=== PATIENT | female | born 1985 | race Caucasian/White ===

== ENCOUNTER 2021-12-24 15:59 | Outpatient (CLI) | payer OTHER, SELFPAY ==
--- NOTE | 2021-12-24 16:00 | CRLHL7_ITS ---
For Patients: As a result of the Century Cures Act, medical imaging exams and procedure reports are released immediately into your electronic medical record. You may view this report before your referring provider. If you have questions, please contact your health care provider. Indication: Miscarriage with continued bleeding Technique: Pelvic ultrasound Comparison: No comparison Findings: The uterus measures 7.2 x 3.7 x 4.7 centimeters. Endometrium measures 8 millimeters no intrauterine gestational sac. Endometrium is mildly heterogeneous there is vascularity within the endometrium. The right ovary measures 5.6 x 2.4 x 4.1 centimeters there is a 4.3 centimeter anechoic cyst. Normal blood flow to the right ovary. Left ovary unremarkable measuring 3 x 1.3 x 2.5 centimeters. No free fluid in the pelvis. Impression: 1. Slightly heterogeneous endometrium measuring 8 millimeters with vascularity. Retained products of conception would not be completely excluded. 2. 4.3 centimeter anechoic ovarian cyst on the right. Normal blood flow to both ovaries. Dictated by Lizy Ames MD @ 12/24/2021 6:02:33 PM (Electronically Signed)
== END 2021-12-24 16:00 | disposition home or self-care (01) ==
LOC: US 16:02
PROVIDERS: PCP Family Medicine; Visit Provider Family Medicine
DX: O03.9 Complete or unspecified spontaneous abortion without complication (principal); N83.201 Unspecified ovarian cyst, right side
CPT/HCPCS: 76830; 76856; 93976

== ENCOUNTER 2021-12-26 11:46 | Outpatient (CLI) | payer OTHER, SELFPAY ==
[2021-12-26 13:37] LABS: HCG Quantitative* < 2.39 mIU/mL
== END 2021-12-26 11:47 | disposition home or self-care (01) ==
LOC: NFLDREF 11:49
PROVIDERS: PCP Family Medicine; Visit Provider Obstetrics & Gynecology
DX: O03.9 Complete or unspecified spontaneous abortion without complication (principal)
CPT/HCPCS: 84702

== ENCOUNTER 2022-11-26 08:20 | Inpatient (IN) | payer BC, SELFPAY ==
[2022-11-26] VITALS (21 sets, daily range): BP systolic 127–162; BP diastolic 59–93; PULSE 60–107; RESP 16–18; TEMP 36.8–37.4; O2SAT 95–100; BMI 22.8
[2022-11-26 09:17] LABS: Basophils Absolute Auto 0.02 K/uL (0.00-0.30); Basophils Percent Auto 0.3 % (0.0-3.0); Eosinophils Absolute Auto 0.02 K/uL (0.00-0.50); Eosinophils Percent Auto 0.3 % (0.0-7.0); Hematocrit 39.4 % (33.0-51.0); Hemoglobin* 12.6 gm/dL (12.0-16.0); Immature Granulocytes Abs Auto 0.02 K/uL (0.00-0.30); Immature Granulocytes Pct Auto 0.3 %; Lymphocytes Absolute Auto 1.24 K/uL (0.90-2.90); Lymphocytes Percent Auto 20.2 % (20-44); Mean Corpuscular HGB Conc 32 gm/dL (32-36); Mean Corpuscular Hemoglobin 29 pg (26-34); Mean Corpuscular Volume 89 fL (80-100); Monocytes Percent Auto 6.4 % (0.0-11.0); Neutrophils Percent Auto 72.5 % (42.0-72.0); Platelet Count* 120 K/uL (140-440); RDW Coefficient of Variation % 13.7 % (11.5-15.5); Red Blood Count 4.41 m/uL (4.00-5.20); White Blood Count* 6.13 K/uL (4.50-11.00)
[2022-11-26 09:18] LABS: Slide Review Reflex No
[2022-11-26] MEDS: LACTATED RINGERS 1000 ML 1,000 ML 125 ML IV (09:22)
[2022-11-26] MEDS: OXYTOCIN 30 unit/500 ML in NS 30 UNIT/500 ML BAG IVPB (09:24)
--- NOTE | 2022-11-26 10:55 | PM.OBHPLI ---
OB - H&P: HPI Labor/Induction History of Present Illness Time Seen by Provider: 10:55 Date Seen: 11/26/22 Chief Complaint: The patient is a 37 year old 4 para 2 at 39w3d gestation by LMP and consistent with 9 week ultrasound, who presents for induction of labor for AMA and history of precipitous deliveries. Chief complaint: Elective, Hx fast labors : 4 Para: 2 Narrative: Susu Vaughn is a 37 year old female here for induction for AMA and history of precipitous delivery at 39w4d. She feels well. Has no concerns today. Notably, has daughter with CF carrier and dad has thalassemia. Met with Perinatology during this and declined carrier screening for this . History of Present Dating criteria: based on LMP care: good care Ultrasounds: normal 1st trimester US and normal mid trimester US (Normal level 2 ultrasound with MPP) Medical complications: none Labs Blood type: A (+) positive Rubella: immune RPR/VDLR: nonreactive GBS status: negative HBsAG: negative Review of Systems Status of ROS: Reports: 10 or more systems reviewed and unremarkable except as noted in History and below Meds Home Medications and Allergies Home Medications Medication Instructions Recorded Confirmed Type No Known Home Medications 12/26/21 12/26/21 History Allergies Allergy/AdvReac Type Severity Reaction Status Date / Time No Known Drug Allergies Allergy Verified 12/26/21 10:48 OB - H&P: Exam Physical Exam: Vital signs: Pulse BP Pulse Ox 77 135/85 98 11/26/22 08:30 11/26/22 08:30 11/26/22 08:29 Constitutional: Constitutional: no acute distress and thin Routine HEENT Exam: Head: Present atraumatic and normal inspection ENT: Present mucous membranes moist Routine Neck Exam: Neck: Present full ROM Routine Respiratory Exam: Respiratory: Present CTA bilaterally Routine Cardiovascular Exam: Cardiovascular: RRR, S1 and S2 Routine Rectal Exam: Visual: Absent tenderness Routine Exam: Perineum Description: Normal Detailed Labor and Delivery Exam: Patient Gravid: Yes Dilation (cm): 4 Effacement (%): 60 Cervix position: posterior Consistency: soft Contraction frequency (min): 2 Contraction duration (sec): 30 Tachysystole: No Contraction intensity: Mild Fetus (Single): Station: -2 Amniotic Membrane Status: AROM (blood tinged fluid) Heart Rate Baseline: 130 Monitor Accelerations: Present Monitor Decelerations: None Calender Wind Up Tender Variability: Moderate (6-25) Routine Extremities Exam: Extremities: Absent calf tenderness Routine Back/Spine/Pelvis Exam: Back/Spine: full ROM Routine Neurological Exam: Present alert and oriented X3 Routine Psychiatric Exam: Present normal affect OB - Results Labs Labs: Short CBC 11/26/22 Range/Units 09:11 WBC 6.13 (4.50-11.00) K/uL Hgb 12.6 (12.0-16.0) gm/dL Hct 39.4 (33.0-51.0) % Plt Count 120 L (140-440) K/uL OB - Problem Based A/P Additional Plan (1) Term : Status: Acute (2) AMA (advanced maternal age) multigravida 35+: Status: Acute Plan - Pitocin is at 4 - AROM with blood tinged fluid - anticipate Delivery/Labor/Induction Plan Plan: induction Induction method: per pitocin protocol (AROM after pitocin)
[2022-11-26 13:59] LABS: Creatinine* 0.5 mg/dL (0.5-1.5); Est. Creatinine Clearance* 141.31; Estimated Glomerular Filt Rate 125 ml/min
[2022-11-26 14:00] LABS: Alanine Aminotransferase* 14 U/L (4-35); Aspartate Amino Transferase* 27 U/L (12-35); Blood Urea Nitrogen* 11 mg/dL (5-24)
[2022-11-26] MEDS: LIDOCAINE 1 % PF 30 ML INJECTION (14:22)
--- NOTE | 2022-11-26 14:45 | W.PM.OBVAGDE ---
OB Procedure Vag Delivery Mother Details Mother Details: The patient is a 37 year-old, 4, Para 2, admitted on 11/26/22 at 39.3 Days gestation. : 4 Para: 3 Weeks Gestation: 39.3 Admission Date: 11/26/22 Additional Details Amniotic Membrane Status: AROM (blood tinged fluid) Amniotic Membrane Rupture Date: 11/26/22 Amniotic Membrane Rupture Time: 10:39 Amniotic Membrane Fluid Description: Bloody (blood tinged) Analgesia/Anesthesia Type: None Waterbirth: No Pitcoin: Yes (turned off shortly after AROM) Intrapartal Events: Labor Induction Induction Method: per pitocin protocol and AROM Labor Onset: 13:10 Complete: 13:55 Pushin:58 Heart: heart tones during second stage were category 1 Delivery Details Delivery Date: 11/26/22 Delivery Time: 14:07 Route of delivery: Infant Gender: Female Viability: Alive; Heart Rate Present Position at Delivery: OA Delivery Details: Patient was induced for AMA at 39w3d. Pitocin was started and AROM was performed. Patient developed preeclampsia during labor based only on BP>160 systolic, did not require treatment and therefore magnesium was not started. She had no symptoms and labs were reassuring. Patient progressed well, becoming complete at 1355. She started pushing at 1358. Delivered over intact perineum via spontaneous vaginal delivery at 1407 in squatting position (on bed with squat bar). Infant was placed on maternal abdomen.? Cord was clamped and cut after a 30-60 second delay. Nose and mouth were bulb suctioned.? weight 8 lbs 4 oz 1 Minute Interval Total Score: 8 5 Minute Interval Total Score: 8 Additional Details Shoulder Dystocia: No Placenta Delivery Time: 14:14 Placental Delivery Description: Spontaneous Delivery repair: Vicryl Blood Loss: 50 Laceration: Perineal - 2nd Degree Episiotomy Description: None Blood Loss Measurement Type: EBL Bakri Used: No Sponge/Need Count Correct: Yes Cord Vessel Description: 3 Vessels Event Summary Status: Mother and infant were stable after delivery. Disposition: no change
[2022-11-26] MEDS: IBUPROFEN 600 MG TABLET PO (16:09)
[2022-11-26] MEDS: ACETAMINOPHEN 500 MG TABLET 1000 MG PO (19:58)
[2022-11-27 00:32] VITALS: BP 123/71; PULSE 65; RESP 15; TEMP 37; O2SAT 96
[2022-11-27] MEDS: IBUPROFEN 600 MG TABLET PO ×2 (02:06→11:50)
[2022-11-27 04:14] VITALS: BP 120/65; PULSE 79; RESP 14; TEMP 36.9; O2SAT 96
[2022-11-27 04:37] LABS: Hematocrit 37.3 % (33.0-51.0); Hemoglobin* 11.9 gm/dL (12.0-16.0); Mean Corpuscular HGB Conc 32 gm/dL (32-36); Mean Corpuscular Hemoglobin 29 pg (26-34); Mean Corpuscular Volume 90 fL (80-100); Platelet Count* 107 K/uL (140-440); Red Blood Count 4.15 m/uL (4.00-5.20)
[2022-11-27 04:38] LABS: Slide Review Reflex No
[2022-11-27 04:52] LABS: Creatinine* 0.5 mg/dL (0.5-1.5); Est. Creatinine Clearance* 141.31; Estimated Glomerular Filt Rate 125 ml/min
[2022-11-27 05:01] LABS: Alanine Aminotransferase* 13 U/L (4-35); Aspartate Amino Transferase* 30 U/L (12-35)
[2022-11-27 08:11] VITALS: BP 107/77; PULSE 83; RESP 16; TEMP 37.2; O2SAT 95
--- NOTE | 2022-11-27 08:16 | PM.OBDSVD1 ---
DS: Providers Provider Date Seen: 11/27/22 Date of admission: 11/26/22 08:20 Primary care physician: Aiyana Mcqueen MD Admitting Clinician: Aiyana Mcqueen MD Attending Physician on discharge: Aiyana Mcqueen MD Date of Discharge: 11/27/22 DS: Diagnosis Discharge Diagnosis (1) (normal spontaneous vaginal delivery): Status: Acute (2) Preeclampsia: Status: Acute (3) AMA (advanced maternal age) multigravida 35+: Status: Acute Exam Const: Vital Signs, click to edit/add: Vital Signs - 24 hr 11/26/22 08:29 11/26/22 08:30 11/26/22 08:30 Temperature 98.8 F Pulse Rate 77 Pulse Rate [Pulse Oximeter] Respiratory Rate Blood Pressure 135/85 Blood Pressure [Le ft Arm] Pulse Oximetry 98 98 Oxygen Delivery Ca thod 11/26/22 11:38 11/26/22 11:39 11/26/22 11:39 Temperature 99.3 F Pulse Rate 76 Pulse Rate [Pulse Oximeter] Respiratory Rate 16 Blood Pressure 130/93 H Blood Pressure [Le ft Arm] Pulse Oximetry 98 Oxygen Delivery Ca thod 11/26/22 11:56 11/26/22 12:01 11/26/22 12:01 Temperature 98.6 F Pulse Rate 80 Pulse Rate [Pulse Oximeter] Respiratory Rate 16 Blood Pressure 161/88 H Blood Pressure [Le ft Arm] Pulse Oximetry 99 99 Oxygen Delivery Ca thod 11/26/22 12:25 11/26/22 12:25 11/26/22 13:15 Temperature 99.1 F Pulse Rate 84 81 Pulse Rate [Pulse Oximeter] Respiratory Rate 16 Blood Pressure 148/71 H 162/78 H Blood Pressure [Le ft Arm] Pulse Oximetry 98 Oxygen Delivery Ca thod 11/26/22 13:16 11/26/22 13:16 11/26/22 13:36 Temperature 99.0 F Pulse Rate 107 H Pulse Rate [Pulse Oximeter] Respiratory Rate 18 Blood Pressure 147/73 H Blood Pressure [Le ft Arm] Pulse Oximetry 99 100 Oxygen Delivery Me thod 11/26/22 13:47 11/26/22 14:15 11/26/22 14:30 Temperature Pulse Rate 89 96 85 Pulse Rate [Pulse Oximeter] Respiratory Rate Blood Pressure 154/73 H 134/67 138/73 Blood Pressure [Le ft Arm] Pulse Oximetry Oxygen Delivery Me thod 11/26/22 14:45 11/26/22 15:00 11/26/22 15:15 Temperature 99.1 F Pulse Rate 93 91 92 Pulse Rate [Pulse Oximeter] Respiratory Rate 16 Blood Pressure 143/77 H 136/62 142/72 H Blood Pressure [Le ft Arm] Pulse Oximetry Oxygen Delivery Ca thod 11/26/22 15:23 11/26/22 15:53 11/26/22 15:55 Temperature Pulse Rate 78 75 60 Pulse Rate [Pulse Oximeter] Respiratory Rate Blood Pressure 139/64 127/71 139/72 Blood Pressure [Le ft Arm] Pulse Oximetry Oxygen Delivery Ca thod 11/26/22 16:10 11/26/22 20:13 11/27/22 00:32 Temperature 98.3 F 98.6 F Pulse Rate 87 Pulse Rate [Pulse Oximeter] 70 65 Respiratory Rate 16 15 Blood Pressure 127/59 L Blood Pressure [Le ft Arm] 131/77 123/71 Pulse Oximetry 95 96 Oxygen Delivery Me od Room Air Room Air 11/27/22 04:14 11/27/22 08:11 Temperature 98.5 F 98.9 F Pulse Rate Pulse Rate [Pulse Oximeter] 79 83 Respiratory Rate 14 16 Blood Pressure Blood Pressure [Le ft Arm] 120/65 107/77 Pulse Oximetry 96 95 Oxygen Delivery Me thod Room Air Room Air Common normals: no apparent distress GI: Common normals: Normal to inspection, nondistended, normoactive bowel sounds present and soft to palpation Palpation: soft Other: Uterus firm 2 cm below umbilicus. Extremity: Common normals: no pedal edema OB - DS: Summary Hospital Course Hospital Course: The patient is a 37 year old G 4 P 2 at 39+3 weeks gestation that was admitted to the Center on 11/26/22 for IOL for AMA and hx of precipitous deliveries. She had an uncomplicated vaginal delivery. She delivered a viable female infant. She is breast and bottle feeding. the patient has done well. Peripartum Data Infant delivery method: Vaginal Laceration description: Perineal - 2nd Degree complications: none Gender: Female Discharge Plan: Home Status at Discharge Functional status at discharge: independent ambulation Overall status at discharge: patient is progressing back to baseline Time Spent with Patient Time attestation: Total time spent providing and/or coordinating discharge services: Discharge Plan Discharge Disposition: Home, Self-Care Date of Admission: 11/26/22 08:20 Attending Provider on Discharge: Lesa Gomez Primary Care Provider: Aiyana Mcqueen Condition: Improved Anticipated Discharge Date/Time: 11/27/22 08:19 Discharge Medications: No Action No Known Home Medications Discharge Orders: Discharge Order (Routine); Ordered 11/27/22 Ordered By: Lesa Gomez Patient Education: OB Vaginal/Bottle Feeding Activity Level: No Restrictions Activity Detail: nothing per vagina x6 weeks Discharge Diet: Regular Follow Up Appointments: Aiyana Mcqueen MD [Primary Care Provider] - (6 week post visit. Please be seen sooner if concerns arise.) Forms: [facility] Info Instructions
[2022-11-27] MEDS: ACETAMINOPHEN 500 MG TABLET 1000 MG PO (08:25)
[2022-11-27] MEDS: DOCUSATE SODIUM 100 MG CAPSULE PO (08:29)
[2022-11-27 11:41] VITALS: BP 127/83; PULSE 81; RESP 16; TEMP 36.9; O2SAT 98
== END 2022-11-27 15:15 | disposition home or self-care (01) | DRG 560 ==
PROVIDERS: Admitting Provider Family Medicine; PCP Family Medicine; Visit Provider Family Medicine
DX: O14.94 Unspecified pre-eclampsia, complicating childbirth (principal); O70.1 Second degree perineal laceration during delivery; Z3A.39 39 weeks gestation of pregnancy; Z37.0 Single live birth
CPT/HCPCS: 36415; 82565; 84450; 84460; 84520; 85018; 85025; 85027; 86850; 86900; 86901; A9270; J2001; J7120